=== PATIENT | male | born 1990 | race Two or more races ===

== ENCOUNTER → 2024-05-31 | Emergency (ER) | payer OTHER ==
[~2024-05-31] VITALS: Ht 180.3 cm; Wt 124.7 kg
[~2024-05-31] MED LIST: DIPHENHYDRAMINE HCL 50 MG/ML VIAL 1ML IV ONE
[2024-05-31 17:24] LABS: ABG PH 7.426 (7.35-7.45); ABG PO2 87.4 mmHg (80-100); ABG pCO2 34.3 mmHg (35-45); BASE EXCESS -1.6 mmol/l; BICARBONATE 22.1 mmol/l (23-25); SaO2 96.9 %; Tco2 23.1 mmol/l
[2024-05-31 17:32] LABS: allen test SATISFACTORY; o2 21 %; puncture site RADIAL RIGHT
== END | disposition home or self-care (01) ==
LOC: ER 15:39
PROVIDERS: Emergency Medicine
DX: Z77.29 Contact with and (suspected) exposure to other hazardous substances (principal)